=== PATIENT | male | born 1990 | race Caucasian/White ===

== ENCOUNTER 2022-01-23 14:14 | Emergency (ER) | payer OTHER ==
[~2022-01-23] VITALS: Ht 180.3 cm; Wt 77.1 kg
[2022-01-23 14:35] VITALS: BP 117/92
[2022-01-23] MEDS ORDERED: SUCRALFATE 1 GM TAB PO SCH (15:05)
[2022-01-23] MEDS ORDERED: PANTOPRAZOLE 40 MG TABEC PO ONE (15:05)
[2022-01-23] MEDS ORDERED: DICYCLOMINE HCL LIQUID 20 MG, ALUMINUM HYD/MAG/SIMETHICONE 30 ML, LIDOCAINE VISCOUS 2% ... PO ONE ×3 (15:05)
--- NOTE | 2022-01-23 15:11 | NUR ---
LAB COLLECTING BLOODWORK AT THIS TIME
[2022-01-23] MEDS ORDERED: DICYCLOMINE HCL LIQUID 10 MG/5 ML UDC ONE (15:13)
[2022-01-23] MEDS ORDERED: ALUMINUM HYD/MAG/SIMETHICONE 30 ML UDC ONE (15:13)
--- NOTE | 2022-01-23 15:20 | NUR ---
31 Y/O MALE BIB SELF, C/O HEARTBURN, CRAMPING ABD PAIN 8/10 IMMEDIATELY AFTER EATING, 3/10 PRESSURE AND CRAMPING 4 HOURS AFTER EATING XTODAY. PT STATES THEYVE HAD HEARTBURN FOR A YEAR NOW. DENIES EATING ANYTHING NEW, ANYONE SICK AT HOME. STATES THAT HE FEELS " A LOT OF PRESSURE IN HIS ABDOMEN" ABDOMEN IS NOTED TO BE SLIGHTY ROUND, TYMPANY. PAIN UPON PALAPATION. DENIES ANY VOMITING AND DIARRHEA, NAUSEA NOTED. PMH; DENIES NKA
--- NOTE | 2022-01-23 15:25 | NUR ---
PT WHEELED TO XRAY
--- NOTE | 2022-01-23 15:33 | NUR ---
PT RETURNED FROM XRAY
[2022-01-23 16:19] LABS: BASOPHILS # (AUTO) 0.1 K/uL (0.00-0.22); BASOPHILS % (AUTO) 0.8 % (0.0-2.0); EOSINOPHILS # (AUTO) 0.2 K/uL (0-0.4); EOSINOPHILS % (AUTO) 1.9 % (0.0-4.0); HEMATOCRIT 52.8 % (36-52); HEMOGLOBIN 18.2 g/dL (12.0-18.0); LYMPHOCYTES % (AUTO) 22.3 % (20.5-51.1); MEAN CORPUSCULAR HEMOGLOBIN 32 pg (27-31); MEAN CORPUSCULAR HGB CONC 34 g/dL (33-37); MEAN CORPUSCULAR VOLUME 93.3 fL (80-94); MONOCYTES # (AUTO) 0.7 K/uL (0.8-1.0); MONOCYTES % (AUTO) 7.7 % (1.7-9.3); NEUTROPHILS # (AUTO) 5.9 K/uL (1.8-7.7); NEUTROPHILS % (AUTO) 67.3 % (42.2-75.2); PLATELET COUNT (AUTO) 251 K/uL (140-450); RED BLOOD CELL COUNT(AUTO) 5.66 MIL/uL (4.20-6.10); WHITE BLOOD COUNT (AUTO) 8.8 K/uL (4.8-10.8)
[2022-01-23 16:28] LABS: ALBUMIN 4.3 g/dL (3.4-5.0); ANION GAP 11.1 (8-16); CARBON DIOXIDE 30.4 mmol/L (21-32); CREATININE 1.2 mg/dL (0.6-1.3); POTASSIUM 4.5 mmol/L (3.5-5.1); TOTAL BILIRUBIN 0.4 mg/dL (0.0-1.0)
[2022-01-23 17:00] VITALS: BP 128/67
--- NOTE | 2022-01-23 17:28 | NUR ---
PT STATED NO PAIN AND LACK OF PRESSURE IN THEIR ABDOMEN
[2022-01-23] MEDS ORDERED: FAMO-90 PO (18:15)
[2022-01-23] MEDS ORDERED: SUCR1TAB35 PO (18:15)
--- NOTE | 2022-01-23 18:42 | NUR ---
Patient discharged with v/s stable. Written and verbal after care instructions ABOUT GERD given and explained. Patient alert, oriented and verbalized understanding of instructions. Carried with steady gait. All questions addressed prior to discharge. ID band removed. Patient advised to follow up with PMD. Rx of PEPCID AND CARAFATE given. Patient educated on indication of medication including possible reaction and side effects. Opportunity to ask questions provided and answered.
== END 2022-01-23 18:42 | disposition home or self-care (01) ==
LOC: MED 14:14
DX: K21.9 Gastro-esophageal reflux disease without esophagitis (principal); Z79.899 Other long term (current) drug therapy
CPT/HCPCS: 36415; 74022; 80053; 83690; 85025; 99284

== ENCOUNTER 2022-10-07 13:51 | Emergency (ER) | payer OTHER ==
[~2022-10-07] VITALS: Ht 177.8 cm; Wt 74.8 kg
[~2022-10-07 13:51] MED LIST: FAMO-90 PO; SUCR1TAB35 PO
[2022-10-07 14:01] VITALS: BP 139/100
--- NOTE | 2022-10-07 14:13 | NUR ---
31 y/o male bib self with c/o generalized abdominal pain x 1 hour. Patient denies any new food or sick contacts. Patient states he was drinking alcohol. Denies any fever, chills or SOB. Per patient, he was told he has Gastritis last time he had this happen. Medical History: Denies NKDA
--- NOTE | 2022-10-07 14:22 | NUR ---
Dr. Winter evaluating patient at bedside.
[2022-10-07] MEDS ORDERED: DICYCLOMINE HCL LIQUID 20 MG, ALUMINUM HYD/MAG/SIMETHICONE 30 ML, LIDOCAINE VISCOUS 2% ... PO ONE ×3 (14:25)
[2022-10-07] MEDS ORDERED: ALUMINUM HYD/MAG/SIMETHICONE 30 ML UDC ONE (14:26)
[2022-10-07] MEDS ORDERED: DICYCLOMINE HCL LIQUID 10 MG/5 ML UDC ONE (14:26)
[2022-10-07] MEDS ORDERED: OMEP40EC24 PO (14:40)
--- NOTE | 2022-10-07 15:05 | NUR ---
The patient's care was reviewed and supervised by [place] [facility], RN.
== END 2022-10-07 15:05 | disposition home or self-care (01) ==
LOC: MED 13:51
DX: K21.9 Gastro-esophageal reflux disease without esophagitis (principal)
CPT/HCPCS: 99283